=== PATIENT | female | born 1975 | race Caucasian/White ===

== ENCOUNTER 2024-06-28 13:33 | Outpatient (OUT) | payer MEDICAID, SELFPAY ==
--- NOTE | 2024-06-27 13:52 | V.VEINS.HP ---
Vital Signs 06/28/24 13:55 Height 5 ft 11 in Weight 83.915 kg BMI 25.8 BP 114/58 BP Location Left Brachial BP Position Sitting BP Cuff Size Adult BP Source Manual Cuff Respiration 20 Pulse 88 Pulse Source Monitor Pulse Oximetry (%) 95 Oxygen Delivery Method Room Air Varicose Veins Patient is a 48 year old male in this day as a referral from [facility] wound clinic secondary to slow healing wounds to bilateral legs. Patient c/o bilateral leg pain, edema, and discoloration. He states the wounds were spontaneous (not traumatic) secondary to swelling. 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 Patient currently is unable to wear compression stockings due to the wounds along with immense pain. Patient has no family history of varicose veins that he is aware of. Patient has no history of varicose vein disease treatment nor any history of blood clots. Patient states that the pain and swelling area affecting his job performance because he often times has to take multiple breaks and elevate legs/feet due to pain and edema. IEd MD personally performed the services described in this documentation, as scribed by Shadi Martinez RN in my presence and it is both accurate and complete. IShadi RN, am scribing for, and in the presence of, Dr. Ed Armstrong and in the presence of the patient. . thigh: bilateral, knee: bilateral, calf: bilateral, ankle: bilateral and velasquez: bilateral aching, burning, cramping, dull and tender 4 2 months Worsened in recent months: Yes standing elevating extremities Reports muscle spasms of leg, erythema, fatigue, heaviness, limb pain, edema, leg edema and other (wounds to bilateral legs) History of lower extremity trauma: No Superficial thrombophlebitis: No Family history of varicose veins: no Has patient had previous lower extremity venous surgery: No Patient has previously received the following treatment(s) for lower extremity varicose veins: Reports none Does patient have a history of : not applicable Has patient had lower extremity venous scan with relux testing: No Support hose used: No (due to wounds) Problems walking or doing physical activity: Yes How does it affect you: pain affects ability to work, patient has to take breaks often and elevate Do you walk much: Yes Do you stand much: Yes Review of Systems ROS Narrative IEd MD personally performed the services described in this documentation, as scribed by Shadi Martinez RN in my presence and it is both accurate and complete. I, Shadi Martinez RN, am scribing for, and in the presence of, Dr. Ed Armstrong and in the presence of the patient. Status of ROS 10 or more systems reviewed and unremarkable except as noted in history and below Cardiovascular Reports: edema Integumentary/Breast Reports: itching, redness, skin pain, skin tenderness, skin swelling, new lesion, non-healing lesion and changes in skin color Neurological Reports: numbness in extremities and weakness in extremities PFSH PFS Medical History (Updated 06/28/24 @ 14:27 by Shadi Martinez) Hearing loss in left ear ?H91.92 - Unspecified hearing loss, left ear (ICD-10) Pain due to varicose veins of both lower extremities ?I83.813 - Varicose veins of bilateral lower extremities with pain (ICD-10) Rheumatoid arthritis ?M06.9 - Rheumatoid arthritis, unspecified (ICD-10) Osteoarthritis ?M19.90 - Unspecified osteoarthritis, unspecified site (ICD-10) Hypertension ?I10 - Essential (primary) hypertension (ICD-10) Family History (Updated 06/28/24 @ 14:24 by Shadi Martinez) Other Family history of cancer Family history of diabetes mellitus Family history of hypertension Seizure Social History (Updated 06/28/24 @ 14:06 by Shadi Martinez) Within the past year, how often did you have a drink containing alcohol: monthly or less Smoking status: Current some day smoker Non-prescribed substance use: denies use Meds Home Medications and Allergies Home Medications ?Medication ?Instructions ?Recorded ?Confirmed ?Type No Known Home Medications 06/28/24 06/28/24 History Allergies Allergy/AdvReac Type Severity Reaction Status Date / Time bee pollen Allergy Severe Anaphylaxis Verified 06/28/24 14:07 amoxicillin [From Augmentin] Allergy Mild Vomiting Verified 06/28/24 14:06 clavulanic acid Allergy Mild Vomiting Verified 06/28/24 14:06 [From Augmentin] Exam Narrative Exam Narrative: Right posterior mid calf wound 2cm in diameter, well approximated and yellow in color left mid anterior-medial lower leg wound 1cm in diameter, well approximated and yellow in color . Ed Isbell MD personally performed the services described in this documentation, as scribed by Shadi Martinez RN in my presence and it is both accurate and complete. Shadi Isbell RN, am scribing for, and in the presence of, Dr. Ed Armstrong and in the presence of the patient. Constitutional Documenting provider has reviewed patient's vital signs: yes Common normals: oriented x3 Lymph Lymphatic: no lymphedema noted Cardio Peripheral pulses: posterior tibial pulses present and dorsalis pedis pulses present Extremity Common normals: normal capillary refill General: calf tenderness and edema Right lower extremity: lower leg Right lower leg: inspection and palpation Left lower extremity: lower leg Left lower leg: inspection and palpation Neuro Common normals: oriented x3 Results Additional Findings Additional findings: Bilateral leg reflux u/s reveals abnormally dilated and imcomptent bilateral great saphenous veins along with right anterior accessory sapheneous veins along with dilated and incomptent perforating veins to bilateral legs in the areas of wounds. Lastly, bilateral branch saphenous, truncal tributary varicosities. Ed Isbell MD personally performed the services described in this documentation, as scribed by Shadi Martinez RN in my presence and it is both accurate and complete. Shadi Isbell RN, am scribing for, and in the presence of, Dr. Ed Armstrong and in the presence of the patient. Assessment and Plan Assessment and Plan (1) Pain due to varicose veins of both lower extremities: Plan Patient to attempt continue rest and elevation to bilateral legs /feet. Patient to return for EVLT's of right GSV, Left GSV, right AASV, bilateral perforating veins. Once EVLT's are complete, move forward with microfoam chemical ablation bilateral leg branch saphenous varicosities Ed Isbell MD personally performed the services described in this documentation, as scribed by Shadi Martinez RN in my presence and it is both accurate and complete. Shadi Isbell RN, am scribing for, and in the presence of, Dr. Ed Armstrong and in the presence of the patient.
--- NOTE | 2024-06-27 13:53 | W.VEIN ---
Discharge Plan Discharge Disposition: Home, Self-Care Outpatient Diagnostics: VC Endovenous Ablation 1VeinRT (Routine) Timeframe: 2 Months Facility: [facility] - Location: [facility] Ordered By: Ed Armstrong Plan of Treatment: EVLT of right GSV Print Language: Spanish Discharge Date/Time: 06/28/24 15:55
--- NOTE | 2024-06-28 13:43 | VEIN_ITS ---
Patient Name: DENA FORMAN MR#: [id number] : 1975 Exam Date: 06/28/2024 Ordering Doctor: DR MIKE MICHELLE M.D. RADIOLOGY REPORT PROCEDURE: VC EXT VENOUS REFLUX KALEB LMTD COMPARISON: None. INDICATIONS: I83.813 Bilateral leg painful varicose veins TECHNIQUE: Duplex imaging of the lower extremity to assess the deep and superficial venous system for the presence of deep or superficial venous incompetence and to document the location and severity of disease. The study includes evaluation of the great saphenous vein (GSV), anterior accessory saphenous vein (AASV) and small saphenous vein (SSV). Patient scanned in reverse Trendelenburg and standing. FINDINGS: RIGHT LOWER EXTREMITY: Saphenofemoral Junction Reflux: Yes 7.8mm 1.0 sec GSV: Diam (mm) Reflux/ Time (sec) Proximal Thigh 7.8 Yes 0.6 Mid Thigh 5.8 Yes 0.5 Distal Thigh 5.4 Yes 2.3 Prox Calf 3.6 No Mid Calf 4.3 Yes 0.4 Saphenopopliteal Junction Reflux: 5.0mm No SSV: Proximal Calf 4.2 No Mid Calf 3.9 Yes 0.6 AASV: Proximal Thigh 6.0 Yes 0.6 Mid Thigh 3.6 Yes 0.3 Distal Thigh Thrombi: No acute or chronic thrombus. Compressibility: Normal. Flow: No deep venous reflux. Preforator: Mid medial lower leg 5.0 mm with 1.9s reflux. Tech Note: Incompetent varicose vein proximal medial lower leg measures 4.1 mm with 1.1s reflux. Varicose vein distal medial/anterior lower leg measures 4.0 mm with 0.7s reflux. LEFT LOWER EXTREMITY: Saphenofemoral Junction Reflux: Yes 10.6 mm 0.9 sec GSV: Diam (mm) Reflux/Time (sec) Proximal Thigh 8.3 Yes 0.6 Mid Thigh 5.4 Yes 0.5 Distal Thigh 6.0 No Prox Calf 5.3 Yes 0.4 Mid Calf 5.4 Yes 0.6 Saphenopopliteal Junction Relux: 3.4 mm No SSV: Proximal Calf 3.3 No Mid Calf 2.9 Yes 0.2 AASV: Not present Proximal Thigh Mid Thigh Distal Thigh Thrombi: No acute or chronic thrombus. Compressibility: Normal. Flow: Mild deep venous reflux in popliteal vein. Manometer Technician: Distal medial lower leg 5.3 mm with 2.1s reflux. Mid posterior calf near wound 3.2 mm with 1.2s reflux. Tech Note: Incompetent varicose vein proximal medial lower leg measures 4.2 mm with 0.8s reflux. Varicose vein distal medial/anterior lower leg measures 4.0 mm with 0.5s reflux. CONCLUSION: 1. Abnormally dilated and incompetent right great saphenous, right anterior accessory saphenous, and left great saphenous veins. Associated incompetent branch saphenous varicosities. Dilated and incompetent fixed capital clerk vein within lower leg bilaterally. Dictated by: Ed Armstrong M.D. on 06/28/2024 at 14:51 Approved by: Ed Armstrong M.D. on 06/28/2024 at 14:58
--- NOTE | 2024-06-28 13:43 | VEIN_ITS ---
Patient Name: DENA FORMAN MR#: [id number] : 1975 Exam Date: 06/28/2024 Ordering Doctor: DR MIKE MICHELLE M.D. RADIOLOGY REPORT PROCEDURE: [facility] - OFFICE VISIT INITIAL COMPARISON: None. PROGRESS NOTES: [age] year old male who presents with a 2 month history of lower extremity muscle spasm, heaviness, fatigue, leg pain, swelling, and bilateral nonhealing wounds. The patient's leg symptoms are symmetric bilaterally. There has been a progression of symptoms over the past 2 months. This increases with prolonged standing which patient does for his job. The patient describes an improvement with rest and elevation. The patient denies any signs and symptoms to suggest arterial ischemia. The patient describes a family history of cancer, diabetes, hypertension, seizure. The patient has drinking and smoking history of nearly daily smoker; occasional alcohol consumption. Patient has a past medical history significant for arthritis, hypertension, hearing loss, varicose veins. The patient denies a history of deep venous thrombus or pulmonary embolus. See separate history and physical for medication list. No prior treatment for varicose or spider veins. No prior use of compression stockings. After review of nurse notes, history and physical exam I discussed at length the pathophysiology of venous hypertension and possible treatments, therapies and strategies available. We discussed at length the importance of elevating the lower extremities above the level of the heart, increased physical activity and compression stocking use. Ultrasound venous reflux study performed today was discussed at length with the patient. The report demonstrates abnormally dilated and incompetent right great saphenous, right anterior accessory saphenous, and left great saphenous veins. Bilateral distal lower extremity fruit ii farmworker veins, and bilateral branch saphenous varicosities. PHYSICAL EXAM: The right leg demonstrates a few varicosities, no significant spider veins, multiple small wounds and an ulceration, mild-moderate edema, marked skin discoloration. The left leg demonstrates a few varicosities, no significant spider veins, multiple small wounds and an ulceration, mild-moderate edema, marked skin discoloration. Both thighs, legs and feet were symmetrically warm to the touch. Good posterior tibial and dorsalis pedis pulses were present bilaterally. VEIN/[facility] IMPRESSION: 1. Bilateral lower extremity venous insufficiency 2. Bilateral lower extremity varicose veins 3. Mild-moderate bilateral lower extremity subcutaneous edema 4. No known flow significant arterial disease 5. CEAP: C6, AP, AP, PA PLAN: 1. Began use of compression stockings. (3 month trial of compression stockings may be of limited use and difficult to obtain due to patient's multiple wounds and dressing/bandages which will be very difficult to keep in place while putting on stockings and may hamper healing by pulling off dressings when removing stockings.) 2. Elevated legs and increased physical activity symptomatic relief 3. Endovenous laser ablation of right great saphenous, right anterior surgery accessory saphenous, left great saphenous, bilateral fruit ii farmworker veins. 4. Microfoam chemical ablation of bilateral lower extremity incompetent branch saphenous varicosities. 5. PVR testing and bilateral lower extremity CT Angiography to evaluate for possible arterial disease given the significant lower extremity skin changes and wounds. Nurse notes, history and physical were reviewed and confirmed, see attached forms. The nurse was present throughout the physical exam and consultation Dictated by: Ed Armstrong M.D. on 06/28/2024 at 14:58 Approved by: Ed Armstrong M.D. on 06/28/2024 at 15:50
[2024-06-28 13:55] VITALS: BP 114/58; PULSE 88; O2SAT 95; BMI 25.8
== END 2024-06-28 15:55 | disposition home or self-care (01) ==
LOC: VC 13:33
DX: I83.813 Varicose veins of bilateral lower extremities with pain (principal)
CPT/HCPCS: 93970; G0463